=== PATIENT | male | born 1945 | race Caucasian/White ===

== ENCOUNTER 2017-03-04 10:42 | Inpatient (IN) | payer MEDICARE, BC ==
[2017-03-04] MEDS ORDERED: Sodium Chloride 0.9% 10 ML Syringe FLUSH PRN (11:50)
--- NOTE | 2017-03-04 11:56 | EDM.PDOC ---
ED HPI GENERAL MEDICAL PROBLEM - General Chief Complaint: Abdominal Pain Stated Complaint: ABDOMINAL PAIN Time Seen by Provider: 03/04/17 11:40 Source of Information: Reports: Patient History Limitations: Reports: No Limitations - History of Present Illness INITIAL COMMENTS - FREE TEXT/NARRATIVE: Johnny is a 71-year-old male with a history of high blood pressure and hypertension who presents to the emergency department today with sudden onset of generalized abdominal pain that started last night. Patient denies any other associated symptoms, he denies any nausea, vomiting, diarrhea, hematochezia, fever/chills/dysuria. Patient is a fairly healthy male, he denies any abdominal surgical history. Patient denies any recent weight loss. Patient was doing pushups last night and thinks this may be attributed to his pain but when he goes to flex his abdominal muscles this really does not change his current pain complaint. Patient does report that the pain has migrated more to his right side from his mid abdomen/periumbilical area where it started last evening.patient denies any scrotal swelling or pain. Onset: Sudden Bilateral Lower Anterior Abdomen Pain Score (Numeric/FACES): 3 - Related Data Allergies Allergy/AdvReac Type Severity Reaction Status Date / Time Penicillins Allergy Severe Hives Verified 03/04/17 11:17 Home Meds: Home Meds Aspirin [Children's Aspirin] 81 mg PO DAILY 03/04/17 [History] Lisinopril 20 mg PO DAILY 03/04/17 [History] Simvastatin [Zocor] 10 mg PO BEDTIME 03/04/17 [History] amLODIPine [Norvasc] 10 mg PO DAILY 03/04/17 [History] Past Medical History HEENT History: Reports: Impaired Vision Cardiovascular History: Reports: High Cholesterol, Hypertension - Past Surgical History GI Surgical History: Reports: Colonoscopy Social & Family History - Tobacco Use Smoking Status *Q: Former Smoker Years of Tobacco use: 10 Packs/Tins Daily: 0.5 Used Tobacco, but Quit: No - Caffeine Use Caffeine Use: Reports: None - Alcohol Use Days Per Week of Alcohol Use: 5 Number of Drinks Per Day: 1 Total Drinks Per Week: 5 - Recreational Drug Use Recreational Drug Use: No ED ROS GENERAL - Review of Systems Review Of Systems: ROS reveals no pertinent complaints other than HPI. ED EXAM, GI/ABD - Physical Exam Exam: See Below Exam Limited By: No Limitations General Appearance: Alert, WD/WN, No Apparent Distress Throat/Mouth: Normal Inspection, Normal Oropharynx Head: Atraumatic Neck: Normal Inspection, Supple, Non-Tender Respiratory/Chest: No Respiratory Distress, Lungs Clear, Normal Breath Sounds, No Accessory Muscle Use, Chest Non-Tender Cardiovascular: Normal Peripheral Pulses, Regular Rate, Rhythm, No Edema, No Murmur, No Rub GI/Abdominal Exam: Normal Bowel Sounds, Soft, No Organomegaly, No Distention, No Abnormal Bruit, No Mass, Guarding, Tender (right lower quadrant including McBurney's point) (Male) Exam: Deferred Rectal (Males) Exam: Deferred Back Exam: Normal Inspection Extremities: Normal Inspection, Normal Range of Motion, Non-Tender, No Pedal Edema, Normal Capillary Refill Neurological: Alert, Oriented, CN II-XII Intact Psychiatric: Normal Affect, Normal Mood Skin Exam: Warm, Dry, Intact Lymphatic: No Adenopathy Course - Vital Signs Last Recorded V/S: Last Vital Signs Temp 35.3 C 03/04/17 11:20 Pulse 64 03/04/17 11:20 Resp 20 03/04/17 11:20 BP 147/77 H 03/04/17 11:20 Pulse Ox 97 03/04/17 11:20 Johnny is a 71-year-old male history of high blood pressure and high cholesterol who presents to the emergency department today with complaints of abdominal pain that started yesterday. Please refer to history of present illness and focused exam. Patient is tender at McBurney's point. Remaining exam is rather unremarkable. Patient and his are anxious regarding patient's complaint today as his was seen here 3 years ago for abdominal pain was found to have stage III ovarian cancer. I do feel that patient may have a musculoskeletal component with his recent pushups yesterday although imitating this does not seem to exacerbate his pain. Peripheral IV was established, patient declined any offer of pain medication, blood work was obtained, white count is normal the patient does have a left shift. Comprehensive metabolic panel is within normal limits except for a mildly low GFR 54, lipase is normal. CT scan was obtained and returns with an acute uncomplicated appendicitis. I discussed patient's case with Dr. Cole Loja, patient has been essentially nothing by mouth since last night, he has only had water to drink and that was at 8:00 this morning. Patient will remain nothing by mouth with scheduled appendectomy at 1800 this evening. Patient is penicillin allergic, he will be given 1 g of Azactam and 2 grams of cefoxitin preoperatively. I did discuss with patient plan of care, he has multiple questions which I did my best to answer, remaining questions can be deferred to Dr. Loja, I did inform patient that the goal is to do this laparoscopically that there is always the chance of an open incision. Consent was filled out by myself and was given to nursing staff, admission orders were initiated by Dr. Cruz, patient remains in stable condition. - Orders/Labs/Meds Orders: Active Orders 24 hr Category Date Time Status Peripheral IV Care [RC] . DIRECTED Care 03/04/17 11:50 Active NPO Now [Nothing per Oral Now Diet] [DIET] Diet 03/04/17 Dinner Active Abdomen Pelvis w Cont [CT] Stat Exams 03/04/17 11:51 Taken Aztreonam [Azactam] 1 gm Med 03/04/17 15:00 Active Sodium Chloride 0.9% [Normal Saline] 50 ml IV ONETIME Iopamidol [Isovue-300 (61%)] Med 03/04/17 12:44 Active 100 ml IV . DIRECTED PRN Sodium Chloride 0.9% [Normal Saline] 1,000 ml Med 03/04/17 12:00 Active IV ASDIRECTED Sodium Chloride 0.9% [Normal Saline] 70 ml Med 03/04/17 12:45 Active IV ASDIRECTED Sodium Chloride 0.9% [Saline Flush] Med 03/04/17 11:50 Active 10 ml FLUSH ASDIRECTED PRN cefOXitin [Mefoxin] 2 gm Med 03/04/17 16:00 Active Sodium Chloride 0.9% [Normal Saline] 50 ml IV ONETIME Peripheral IV Insertion Adult [OM.PC] Routine Oth 03/04/17 11:50 Ordered Medication Orders Sodium Chloride (Normal Saline) 1,000 mls @ 999 mls/hr IV ASDIRECTED [facility] Last Admin: 03/04/17 13:06 Dose: 999 mls/hr Sodium Chloride (Normal Saline) 70 mls @ 3 mls/sec IV ASDIRECTED [facility] Last Admin: 03/04/17 12:57 Dose: 3 mls/sec Aztreonam 1 gm/ Sodium (Chloride) 50 mls @ 100 mls/hr IV ONETIME ONE Stop: 03/04/17 15:29 Cefoxitin Sodium 2 gm/ Sodium (Chloride) 50 mls @ 100 mls/hr IV ONETIME ONE Stop: 03/04/17 16:29 Iopamidol (Isovue-300 (61%)) 100 ml IV . DIRECTED PRN PRN Reason: RADIOLOGY EXAM Stop: 03/05/17 12:45 Last Admin: 03/04/17 12:57 Dose: 100 ml Sodium Chloride (Saline Flush) 10 ml FLUSH ASDIRECTED PRN PRN Reason: Keep Vein Open Last Admin: 03/04/17 13:09 Dose: 10 ml Labs: Laboratory Tests 03/04/17 03/04/17 03/04/17 Range/Units 12:04 12:04 12:04 WBC 7.3 (4.5-11.0) K/uL RBC 4.40 (4.30-5.90) M/uL Hgb 14.8 (12.0-15.0) g/dL Hct 42.1 (40.0-54.0) % MCV 96 (80-98) fL MCH 34 H (27-31) pg MCHC 35 (32-36) % Plt Count 130 L (150-400) K/uL Neut % (Auto) 79 H (36-66) % Lymph % (Auto) 10 L (24-44) % Bowman % (Auto) 10 H (2-6) % Eos % (Auto) 1 L (2-4) % Baso % (Auto) 0 (0-1) % Sodium 138 L (140-148) mmol/L Potassium 4.0 (3.6-5.2) mmol/L Chloride 104 (100-108) mmol/L Carbon Dioxide 26 (21-32) mmol/L Anion Gap 12.0 (5.0-14.0) mmol/L BUN 14 (7-18) mg/dL Creatinine 1.3 (0.8-1.3) mg/dL Est Cr Clr Drug Dosing TNP Estimated GFR (MDRD) 54 L (>60) Glucose 106 (74-106) mg/dL Calcium 9.2 (8.5-10.1) mg/dL Total Bilirubin 0.8 (0.2-1.0) mg/dL AST 19 (15-37) U/L ALT 29 (12-78) U/L Alkaline Phosphatase 75 (46-116) U/L Total Protein 7.7 (6.4-8.2) g/dL Albumin 4.0 (3.4-5.0) g/dL Globulin 3.7 H (2.3-3.5) g/dL Albumin/Globulin Ratio 1.1 L (1.2-2.2) Lipase 101 (73-393) U/L Meds: Medications Generic Name Dose Route Start Last Admin Trade Name Freq PRN Reason Stop Dose Admin Sodium Chloride 1,000 mls @ 999 mls/hr 03/04/17 12:00 03/04/17 13:06 Normal Saline IV 999 mls/hr ASDIRECTED [place] Administration Sodium Chloride 70 mls @ 3 mls/sec 03/04/17 12:45 03/04/17 12:57 Normal Saline IV 3 mls/sec ASDIRECTED [place] Administration Aztreonam 1 gm/ Sodium 50 mls @ 100 mls/hr 03/04/17 15:00 Chloride IV 03/04/17 15:29 ONETIME ONE Cefoxitin Sodium 2 gm/ Sodium 50 mls @ 100 mls/hr 03/04/17 16:00 Chloride IV 03/04/17 16:29 ONETIME ONE Iopamidol 100 ml 03/04/17 12:44 03/04/17 12:57 Isovue-300 (61%) IV 03/05/17 12:45 100 ml . DIRECTED PRN Administration RADIOLOGY EXAM Sodium Chloride 10 ml 03/04/17 11:50 03/04/17 13:09 Saline Flush FLUSH 10 ml ASDIRECTED PRN Administration Keep Vein Open Discontinued Medications Generic Name Dose Route Start Last Admin Trade Name Freq PRN Reason Stop Dose Admin Aztreonam 1 gm/ Sodium 50 mls @ 100 mls/hr 03/04/17 14:00 Chloride IV 03/04/17 14:29 ONETIME ONE Sodium Chloride 10 ml 03/04/17 12:44 03/04/17 12:57 Saline Flush FLUSH 03/04/17 12:45 10 ml ONETIME ONE Administration Departure - Departure Time of Disposition: 15:00 Disposition: Admitted As Inpatient 66 Condition: Good Clinical Impression: Appendicitis Qualifiers: Appendicitis type: acute appendicitis Acute appendicitis type: with localized peritonitis Qualified Code(s): K35.3 - Acute appendicitis with localized peritonitis - Discharge Information Referrals: PCP,None [Primary Care Provider] - Forms: ED Department Discharge - My Orders Last 24 Hours: My Active Orders 03/04/17 11:50 Peripheral IV Care [RC] . DIRECTED Sodium Chloride 0.9% [Saline Flush] 10 ml FLUSH ASDIRECTED PRN Peripheral IV Insertion Adult [OM.PC] Routine 03/04/17 11:51 Abdomen Pelvis w Cont [CT] Stat 03/04/17 12:00 Sodium Chloride 0.9% [Normal Saline] 1,000 ml IV ASDIRECTED 03/04/17 12:44 Iopamidol [Isovue-300 (61%)] 100 ml IV . DIRECTED PRN 03/04/17 12:45 Sodium Chloride 0.9% [Normal Saline] 70 ml IV ASDIRECTED 03/04/17 15:00 Aztreonam [Azactam] 1 gm Sodium Chloride 0.9% [Normal Saline] 50 ml IV ONETIME 03/04/17 16:00 cefOXitin [Mefoxin] 2 gm Sodium Chloride 0.9% [Normal Saline] 50 ml IV ONETIME 03/04/17 Dinner NPO Now [Nothing per Oral Now Diet] [DIET] - Assessment/Plan Last 24 Hours: My Active Orders 03/04/17 11:50 Peripheral IV Care [RC] . DIRECTED Sodium Chloride 0.9% [Saline Flush] 10 ml FLUSH ASDIRECTED PRN Peripheral IV Insertion Adult [OM.PC] Routine 03/04/17 11:51 Abdomen Pelvis w Cont [CT] Stat 03/04/17 12:00 Sodium Chloride 0.9% [Normal Saline] 1,000 ml IV ASDIRECTED 03/04/17 12:44 Iopamidol [Isovue-300 (61%)] 100 ml IV . DIRECTED PRN 03/04/17 12:45 Sodium Chloride 0.9% [Normal Saline] 70 ml IV ASDIRECTED 03/04/17 15:00 Aztreonam [Azactam] 1 gm Sodium Chloride 0.9% [Normal Saline] 50 ml IV ONETIME 03/04/17 16:00 cefOXitin [Mefoxin] 2 gm Sodium Chloride 0.9% [Normal Saline] 50 ml IV ONETIME 03/04/17 Dinner NPO Now [Nothing per Oral Now Diet] [DIET]
[2017-03-04] MEDS ORDERED: Sodium Chloride 0.9% 1,000 ML IV SCH ×2 (12:00→16:30)
[2017-03-04] MEDS ORDERED: Sodium Chloride 0.9% 10 ML Syringe FLUSH ONE (12:44)
[2017-03-04] MEDS ORDERED: Iopamidol 612 MG/ML 100 ML Bottle IV PRN (12:44)
[2017-03-04] MEDS ORDERED: Ondansetron 4 MG/2 ML SDV IVPUSH PRN ×2 (16:20→20:10)
[2017-03-04] MEDS ORDERED: HYDROmorphone/Normal Saline 15 MG/30 ML PCA IV SCH ×2 (16:30→20:09)
[2017-03-04] MEDS: Bupivacaine 0.5%/EPINEPHrine 1:200,000 50 ML MDV ONE ×2 (17:24→18:18)
[2017-03-04] MEDS: cefOXitin 2 GM in Sodium Chloride 0.9% 50 ML IV ONE ×2 (17:33→17:39)
[2017-03-04] MEDS ORDERED: Glycopyrrolate 0.2 MG/ML 5 ML MDV ONE (17:35)
[2017-03-04] MEDS ORDERED: Rocuronium 50 MG/5 ML Vial ONE (17:35)
[2017-03-04] MEDS ORDERED: Neostigmine Methylsulfate 1 MG/ML 5 ML Syringe ONE (17:35)
[2017-03-04] MEDS ORDERED: Succinylcholine 200 MG/10 ML MDV ONE (17:35)
[2017-03-04] MEDS ORDERED: Dexamethasone 4 MG/ML SDV ONE (17:35)
[2017-03-04] MEDS ORDERED: Ondansetron 4 MG/2 ML SDV ONE (17:35)
[2017-03-04] MEDS ORDERED: Propofol 200 MG/20 ML SDV ONE (17:35)
[2017-03-04] MEDS ORDERED: hydrOXYzine HCl 100 MG/2 ML SDV IM ONE (18:33)
[2017-03-04] MEDS: Dextrose 5%-Lactated Ringers 1,000 ML IV SCH (19:00)
[2017-03-04] MEDS ORDERED: Pantoprazole 40 MG Vial IVPUSH ONE (20:26)
[2017-03-04] MEDS: Tamsulosin 0.4 MG Cap.ER PO SCH (20:46)
[2017-03-04] MEDS: cefOXitin 2 GM in Sodium Chloride 0.9% 50 ML IV SCH (22:58)
[2017-03-04] MEDS ORDERED: Benzocaine/Cetylpyridinium/Menthol Lozenge MUCMEM PRN (23:09)
[2017-03-05] MEDS: Dextrose 5%-Lactated Ringers 1,000 ML IV SCH ×3 (00:34→07:41)
[2017-03-05] MEDS: cefOXitin 2 GM in Sodium Chloride 0.9% 50 ML IV SCH ×4 (04:05→21:11)
[2017-03-05] MEDS ORDERED: Naloxone 0.4 MG/ML SDV IV PRN (07:13)
[2017-03-05] MEDS ORDERED: Dextrose 5%-Lactated Ringers 1,000 ML IV SCH (07:50)
[2017-03-05] MEDS ORDERED: amLODIPine 10 MG Tab PO SCH (09:00)
[2017-03-05] MEDS ORDERED: Aspirin 81 MG Tab.EC PO SCH ×2 (09:00→21:00)
[2017-03-05] MEDS ORDERED: Lisinopril 20 MG Tab PO SCH (09:00)
[2017-03-05] MEDS: Pantoprazole 40 MG Vial IVPUSH SCH (09:04)
[2017-03-05] MEDS: Acetaminophen/HYDROcodone 325-5 MG Tab PO PRN ×3 (09:30→21:23)
--- NOTE | 2017-03-05 09:37 | PN ---
DATE OF SERVICE: 03/05/2017 HISTORY: Johnny is postop day 1 following a laparoscopic appendectomy. He reports his pain is controlled. He is using his BIOMETRICS SPECIALIST. REVIEW OF SYSTEMS: Remainder of review of systems is negative for any pertinent positives and negatives. OBJECTIVE: GENERAL: Johnny Moore is a pleasant 71-year-old male. He is alert and orientated, sitting up in hospital bed. VITAL SIGNS: TPR 96.3, 55, 18, blood pressure 119/64. HEENT: Negative. NECK: Supple. HEART: Regular rate and rhythm. LUNGS: Clear. ABDOMEN: Dressing dry and intact. Abdominal binder is on. Patel catheter was removed earlier this a.m. EXTREMITIES: Without peripheral edema. SCDs are on. ASSESSMENT: Laparoscopic appendectomy, 03/04/2017. PLAN: 1. Full liquid diet for breakfast. 2. Advance diet as tolerated, to regular at noon. 3. Discontinue BIOMETRICS SPECIALIST and continuous pulse ox. 4. [place] 5/325 mg 1 to 2 every 4 hours p.r.n. pain. 5. Decrease IV rate to 100 mL per hour. 6. Dressing off. 7. May shower. 8. Good pulmonary toilet encouraged. 9. We will evaluate p.r.n. or in a.m. Bethany French PA-C /[id number]
--- NOTE | 2017-03-05 10:47 | OR ---
DATE OF PROCEDURE: 03/04/2017 PREOPERATIVE DIAGNOSIS: Acute appendicitis. POSTOPERATIVE DIAGNOSES: 1. Acute appendicitis with inflammatory changes extending onto base of cecum. 2. Pericecal inflammatory, possibly infected fluid collection. OPERATIVE PROCEDURES: Diagnostic laparoscopy with: 1. Partial cecectomy including removal of overlying appendix (01958). 2. Drainage of pericecal inflammatory, possibly infected fluid collection (20872). ANESTHESIA: General. INDICATION FOR PROCEDURE: This 71-year-old is presenting with a picture of acute appendicitis confirmed by CT scan. Plan is to proceed with a diagnostic laparoscopy, laparotomy if necessary, and appendectomy. Additional procedures as indicated were reviewed as a possibility with the patient and his . Otherwise, potential risks including bleeding, infection, leaks from various GI tract closures such as appendectomy stump as well as the possibility of cardiopulmonary, septic, or hemorrhagic complications leading to were discussed, and the patient wishes to proceed. DETAILS OF PROCEDURE: The patient was taken to the operating room and after general endotracheal anesthesia was induced, a Patel catheter was inserted and the abdomen prepped and draped. A transverse incision was made 3 fingerbreadths superior and to the left of the umbilicus, and peritoneal cavity entered under direct vision with an Optiview trocar. Peritoneal cavity was inflated to 15 mmHg with CO2 and the laparoscope was reinserted. No underlying trocar insertion site injuries were seen. Following this, a 12-mm trocar was placed in the right upper quadrant as well as the lower quadrant, and general exploration was undertaken. As one peered down toward the cecum, there was a thin slightly purulent fluid collection present. This resulted in quite a bit of localized peritonitis with the peritoneum being markedly reddened and somewhat friable consistent with the localized peritonitis. The appendix was then mobilized upward. It did not have an overt gross perforation. The mesentery of the appendix was then divided up to the level of the junction of the cecum. The inflammatory process extended somewhat onto the cecum and it was felt that a partial cecectomy would be appropriate to apply the staple line in a noninflamed level. This was then accomplished with an initial firing of the MAHENDRA purple load. Following this, a small additional area was divided with a MAHENDRA garcia load. The portion of the cecum along with the overlying appendix was then delivered through the specimen bag via the left lower quadrant trocar site. The periappendiceal fluid collection had been evacuated and cultures were sent. At that point, no further problems were noted. There did not appear to be any indication for drain at this point as the area of the fluid collection appeared to be well drained and hemostasis was quite adequate at the point of the cecectomy and appendiceal resection. The trocars were sequentially removed. The fascia at each of the sites was closed with 0 Vicryl stitch, and the skin with a 4-0 Vicryl skin stitch. Dressing was applied. The patient was taken to the recovery room in a satisfactory condition. There were no evident complications. Eric Loja MD /[id number]
[2017-03-05] MEDS: Aztreonam/Dextrose-Water 1 GM in Premix Bag 1 BAG IV SCH ×2 (13:31→21:23)
[2017-03-05] MEDS ORDERED: Simvastatin 20 MG Tab PO SCH ×2 (21:00)
[2017-03-05] MEDS: Tamsulosin 0.4 MG Cap.ER PO SCH (21:11)
[2017-03-06] MEDS: Acetaminophen/HYDROcodone 325-5 MG Tab PO PRN ×2 (04:09→12:27)
[2017-03-06] MEDS: cefOXitin 2 GM in Sodium Chloride 0.9% 50 ML IV SCH ×2 (04:10→09:04)
[2017-03-06] MEDS: Aztreonam/Dextrose-Water 1 GM in Premix Bag 1 BAG IV SCH (05:36)
[2017-03-06 07:19] VITALS: BP 113/69
[2017-03-06] MEDS: Pantoprazole 40 MG Vial IVPUSH SCH (08:47)
[2017-03-06] MEDS ORDERED: Lisinopril 20 MG Tab PO SCH (12:00)
[2017-03-06] MEDS ORDERED: amLODIPine 10 MG Tab PO SCH (12:00)
[2017-03-06] MEDS ORDERED: Magnesium Hydroxide 400 MG/5 ML Susp 30 ML Cup PO PRN (12:03)
--- NOTE | 2017-03-07 04:05 | DISCH ---
ADMISSION DIAGNOSES: 1. Acute appendicitis. 2. Hypertension. DISCHARGE DIAGNOSIS: Acute appendicitis with inflammatory changes to the base of the cecum, pericecal inflammation and fluid collection on 03/04/2017, Eric Loja MD. OPERATIVE PROCEDURE: Diagnostic laparoscopy with one partial cecectomy including removal of overlying appendix and drainage of pericecal inflammatory, possibly infected fluid collection for acute appendicitis with inflammatory changes extending into the base of the cecum and pericecal inflammatory, possibly infected fluid collection, date of surgery 03/04/2017 - Eric Loja MD, surgeon. HISTORY: Johnny Moore presented to the emergency room with right lower quadrant abdominal pain. After preoperative evaluation and discussion of possible risks and possible complications, he wished to proceed with surgical procedure. HOSPITAL COURSE: He had his surgery on 03/04/2017. He had no operative complications on postop day #1. He was changed to oral pain medication and he was started on a full liquid diet and advanced to a regular diet. On postop day #2, his activity was good. His vital signs were stable. Pain was controlled. His oral intake adequate and he was able to be discharged to home. PHYSICAL EXAMINATION: GENERAL: Johnny Moore is a pleasant 71-year-old male. Height is 5 feet 6 inches and weight is 146 pounds. VITAL SIGNS: TPR 96.8, 58, 16. Blood pressure 113/69. HEENT: Negative. NECK: Supple. HEART: Regular rate and rhythm. LUNGS: Clear. ABDOMEN: Dressing is laid over the top of his incision. Incisions look good. Abdominal binder is on. EXTREMITIES: Without peripheral edema. DISPOSITION: Discharged to home. CONDITION: Stable and improving. FOLLOWUP APPOINTMENT: On 03/12/2017, he will talk with his primary clinic in [place] to have sutures removed or he will come to [facility] for a postop appointment with Alex MAK PA-C, he will call for a time if he chooses to come back to [place]. New prescriptions: [place] 5/325 mg 1 to 2 every 4 hours p.r.n. pain #40, doxycycline 100 mg oral b.i.d. for 5 days #10, Vibramycin 100 mg p.o. b.i.d. for 5 days #10, milk of magnesia 30 mL take 1 daily p.r.n. constipation were sent home with the patient. He is to resume aspirin 81 mg p.o. daily, lisinopril 20 mg p.o. daily, Zocor 10 mg p.o. at bedtime, and Norvasc 10 mg p.o. daily. DISCHARGE DIET: Usual diet as tolerated. Drink 8 to 10 glasses of water a day. ACTIVITY: As tolerated. No lifting greater than 10 pounds for [address] weeks[address] Driving after discharge, Do not drive on pain medication. Shower/bathing, may shower. Notify provider of fever, increased pain, nausea, or vomiting. Wound incision, keep site clean and dry. Wear abdominal binder for 4-6 weeks and then p.r.n. SPECIAL INSTRUCTION: Use incentive spirometer 10 times every hour while awake.
== END 2017-03-06 13:00 | disposition home or self-care (01) | DRG 358 ==
LOC: JP.ED 10:42 → UNDOADMIN 14:55 → JP.MS 14:55 → UNDODISIN 03-06 13:00
PROVIDERS: ADMIT Surgery; ATTEND Surgery
PROC: 0D9W4ZX Drainage of Peritoneum, Percutaneous Endoscopic Approach, Diagnostic (ICD-10-PCS; principal; 2017-03-04)
DX: K35.3 Acute appendicitis with localized peritonitis (principal); I10 Essential (primary) hypertension; E78.00 Pure hypercholesterolemia, unspecified; Z87.891 Personal history of nicotine dependence; Z79.82 Long term (current) use of aspirin; Z88.0 Allergy status to penicillin
CPT/HCPCS: 36415; 74177; 80053; 83690; 85025; 96361; 99285; J7030; J7040; J7050 ×2; Q9967; 87070; 87075; 87077; 87186; 87205; 88304; 94762; 96365; A9270-GY; C9113; J0330; J0694; J1100; J1170; J2405; J2704; J2710; J3010; J3410; J3490; J7042; S0073